=== PATIENT | male | born 1955 | race Caucasian/White ===

== ENCOUNTER 2020-10-21 06:10 | Emergency (ER) | payer OTHER ==
[~2020-10-21] VITALS: Ht 167.6 cm; Wt 69.0 kg
[2020-10-21 06:12] VITALS: BP 123/87
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
--- NOTE | 2020-10-21 07:11 | NUR ---
REPORT FROM CHANI, ASSUME CARE OF PT AT THIS TIME. XR RESULTS BACK, PT FOR RECHECK.
[2020-10-21] MEDS ORDERED: IBUPROFEN 200 MG TABLET ONE (07:37)
[2020-10-21] MEDS ORDERED: IBUPROFEN 200 MG TABLET PO ONE (08:00)
== END 2020-10-21 08:03 | disposition home or self-care (01) ==
LOC: ED 07:49
DX: S20.212A Contusion of left front wall of thorax, initial encounter (principal); Y04.8XXA Assault by other bodily force, initial encounter; Y93.89 Activity, other specified; Y92.410 Unspecified street and highway as the place of occurrence of the external cause; Y99.8 Other external cause status
CPT/HCPCS: 99283

== ENCOUNTER 2021-01-23 18:31 | Emergency (ER) | payer MEDICAID, OTHER ==
[~2021-01-23] VITALS: Ht 167.6 cm; Wt 64.4 kg
[2021-01-23] MEDS ORDERED: DEXAMETHASONE 4 MG/ML, 1ML PO ONE (19:30)
[2021-01-23] MEDS ORDERED: DEXAMETHASONE 4 MG/ML, 1ML ONE (22:33)
[2021-01-23 22:48] VITALS: BP 119/87
--- NOTE | 2021-01-23 22:48 | NUR ---
PATIENT GIVEN MEDICATION PER MAR. TOLERATED WELL.
[2021-01-23] MEDS ORDERED: ACETAMINOPHEN 500 MG TABLET ONE (23:19)
[2021-01-23] MEDS ORDERED: ACETAMINOPHEN 500 MG TABLET PO ONE (23:30)
== END 2021-01-23 23:23 | disposition home or self-care (01) ==
LOC: ED 23:05
DX: U07.1 COVID-19 (principal); J01.00 Acute maxillary sinusitis, unspecified; R09.81 Nasal congestion; F17.210 Nicotine dependence, cigarettes, uncomplicated
CPT/HCPCS: 71045; 99284; J1100; U0003; U0005

== ENCOUNTER 2021-02-09 17:25 | Inpatient (IN) | payer MEDICAID ==
[~2021-02-09] VITALS: Ht 170.2 cm; Wt 78.0 kg
[2021-02-09] MEDS ORDERED: KETOROLAC 30 MG/1 ML IVPush ONE (18:00)
[2021-02-09] MEDS ORDERED: PLEASE ENTER HEIGHT AND WEIGHT MC SCH (18:00)
[2021-02-09] MEDS ORDERED: SODIUM CHLORIDE FLUSH 10ML SYR IVF ONE (18:00)
[2021-02-09] MEDS ORDERED: SODIUM CHLORIDE 0.9% 1,000ML IVBOLUS ONE (18:00)
[2021-02-09] MEDS ORDERED: KETOROLAC 30 MG/1 ML ONE (18:07)
[2021-02-09 18:13] LABS: BASOPHILS % (AUTO) 1 % (0-1); EOSINOPHILS % (AUTO) 2 % (1-7); LYMPHOCYTES % (AUTO) 16 % (22-44); MEAN CORPUSCULAR HEMOGLOBIN 32.4 pg (27.5-34.5); MEAN CORPUSCULAR HGB CONC 33.8 g/dL (33.2-36.2); MEAN PLATELET VOLUME 7.1 fL (7.4-10.4); MONOCYTES % (AUTO) 7 % (2-9); NEUTROPHILS % (AUTO) 74 % (42-75); PLATELET COUNT 487 x10^3/uL (130-400); RED BLOOD COUNT 4.05 x10^6/uL (4.38-5.82); RED CELL DISTRIBUTION WIDTH 13.2 % (9.4-14.8)
[2021-02-09 18:25] LABS: ALANINE AMINOTRANSFERASE 27 U/L (12-78); ALBUMIN 2.6 g/dL (3.4-5.0); ANION GAP 8 mmol/L (5-15); CALCIUM 8.6 mg/dL (8.5-10.1); CHLORIDE 106 mmol/L (98-107); CREATININE 0.74 mg/dL (0.7-1.3)
[2021-02-09 18:28] LABS: ALKALINE PHOSPHATASE 85 U/L (45-117); BILIRUBIN,TOTAL 0.2 mg/dL (0.2-1.0); TOTAL PROTEIN 7.1 g/dL (6.4-8.2)
--- NOTE | 2021-02-09 18:41 | NUR ---
discussing poc with provider. to place pt on simple mask at 10 lpm to help with pneumothorax on left
[2021-02-09] MEDS ORDERED: ONDANSETRON 2MG/ML, 2ML IVPush PRN (23:30)
[2021-02-09] MEDS ORDERED: ENALAPRILAT 1.25 MG/ML, 2ML IVPush PRN (23:30)
[2021-02-09] MEDS ORDERED: MELATONIN 5 MG TABLET PO PRN (23:30)
[2021-02-09] MEDS ORDERED: BENZONATATE 100 MG CAPSULE PO/NG PRN (23:30)
[2021-02-09] MEDS ORDERED: ACETAMINOPHEN 325 MG TABLET PO PRN (23:30)
[2021-02-09] MEDS ORDERED: KETOROLAC 30 MG/1 ML IV PRN (23:30)
[2021-02-09] MEDS ORDERED: CIPR500T87 PO (23:55)
[2021-02-09] MEDS ORDERED: CLIN300C9 PO (23:55)
[2021-02-10 00:14] LABS: TROPONIN I < 0.015 ng/mL (0.000-0.045)
[2021-02-10 02:34] VITALS: BP 111/76
[2021-02-10 09:18] VITALS: BP 112/78
[2021-02-10] MEDS ORDERED: DEXAMETHASONE 4 MG/ML, 1ML IVPush ONE (11:30)
[2021-02-10] MEDS ORDERED: PHARMACY MAY ADJ FOR RENAL FX MC PRN (11:30)
[2021-02-10] MEDS ORDERED: DEXAMETHASONE 4 MG/ML, 1ML ONE (13:31)
[2021-02-10] MEDS ORDERED: ZINC SULFATE 220 MG CAPSULE ONE (13:31)
[2021-02-10] MEDS ORDERED: GUAIFENESIN/DM 200-20MG, 10ML UDC ONE ×3 (13:31→18:06)
[2021-02-10] MEDS ORDERED: ASCORBIC ACID 500 MG TABLET ONE ×2 (13:31→19:18)
[2021-02-10] MEDS: ASCORBIC ACID 500 MG TABLET PO SCH ×2 (13:39→19:44)
[2021-02-10] MEDS: GUAIFENESIN/DM 200-20MG, 10ML UDC PO SCH ×2 (13:39→18:26)
[2021-02-10] MEDS: ZINC SULFATE 220 MG CAPSULE PO SCH (13:40)
[2021-02-10 13:41] VITALS: BP 110/79
[2021-02-10] MEDS ORDERED: MELATONIN 5 MG TABLET ONE (19:19)
[2021-02-11 02:26] VITALS: BP 112/73
[2021-02-11] MEDS: GUAIFENESIN/DM 200-20MG, 10ML UDC PO SCH ×2 (03:24→10:23)
[2021-02-11] MEDS ORDERED: PANTOPRAZOLE 40MG TABLET PO SCH (07:30)
[2021-02-11] MEDS ORDERED: DEXAMETHASONE 4 MG/ML, 1ML IVPush SCH (07:30)
[2021-02-11] MEDS ORDERED: ASCORBIC ACID 500 MG TABLET ONE (08:20)
[2021-02-11] MEDS ORDERED: DEXAMETHASONE 4 MG/ML, 1ML ONE (08:20)
[2021-02-11] MEDS ORDERED: CHOLECALCIFEROL 5,000u TAB ONE (08:20)
[2021-02-11] MEDS ORDERED: PANTOPRAZOLE 40MG TABLET ONE (08:20)
[2021-02-11] MEDS ORDERED: ZINC SULFATE 220 MG CAPSULE ONE (08:21)
[2021-02-11 08:33] LABS: BASOPHILS % (AUTO) 1 % (0-1); EOSINOPHILS % (AUTO) 0 % (1-7); LYMPHOCYTES % (AUTO) 6 % (22-44); MEAN CORPUSCULAR HEMOGLOBIN 32.5 pg (27.5-34.5); MEAN CORPUSCULAR HGB CONC 34.2 g/dL (33.2-36.2); MEAN PLATELET VOLUME 7.1 fL (7.4-10.4); MONOCYTES % (AUTO) 4 % (2-9); NEUTROPHILS % (AUTO) 90 % (42-75); PLATELET COUNT 532 x10^3/uL (130-400); RED BLOOD COUNT 4.03 x10^6/uL (4.38-5.82); RED CELL DISTRIBUTION WIDTH 13.5 % (9.4-14.8)
[2021-02-11] MEDS: ASCORBIC ACID 500 MG TABLET PO SCH (08:36)
[2021-02-11 08:37] LABS: ANION GAP 6 mmol/L (5-15); CALCIUM 8.4 mg/dL (8.5-10.1); CHLORIDE 106 mmol/L (98-107); CREATININE 0.64 mg/dL (0.7-1.3)
[2021-02-11] MEDS: ZINC SULFATE 220 MG CAPSULE PO SCH (08:37)
[2021-02-11] MEDS ORDERED: CHOLECALCIFEROL 1,000 UNIT TABLET PO SCH (09:00)
[2021-02-11] MEDS ORDERED: AMOXICILLIN/CLAV 875-125MG TABLET PO SCH (09:30)
--- NOTE | 2021-02-11 09:30 | NUR ---
Meal tray given at 0830, when asked how pt was doing pt stated, "Well obviously I can't tell you." Pt asked if there was anything nursing staff can do to help him feel better, more comfortable, or any needs addressed, pt stated "Well I can't tell you because I'm angry." Pt refused to explain what he was angry about but did request his dressing to right index finger changed after breakfast. Dressing c/d/i. 0900: Provider at bs, R index finger dressing changed by provider. Pt requests shower. 0930: Pt given hygiene supplies, including bed bath and oral hygiene supplies, fresh gown. Pt declined all hygiene supplied, yelled at this RN, "I'm expecting a shower, I want a shower! The doctor said I could have one, now!" Explained to pt we are unable to provide shower in ED, and explained use of bed bath supplies, no rinse soap. Pt yelled, "No, take that out of here. Take it all out of here. I don't want it!" Pt is on isolation precautions. Pt verbalized understanding of isolation, but stated "I want to go upstairs now! Once I get off of this oxygen I'm going to be fine, I'll just walk out of here. I don't want isolation, I want a shower." Pt currently on O2 at 5Lpm via NC, SpO2 93-95%. Call light within reach. TM.
[2021-02-11] MEDS ORDERED: NICOTINE 14MG/24 HR PATCH.TD24 TD SCH (10:00)
[2021-02-11] MEDS ORDERED: NICOTINE 14MG/24 HR PATCH.TD24 ONE (10:11)
[2021-02-11] MEDS ORDERED: AMOXICILLIN/CLAV 875-125MG TABLET ONE (10:11)
[2021-02-11] MEDS ORDERED: GUAIFENESIN/DM 200-20MG, 10ML UDC ONE (10:11)
[2021-02-11] MEDS ORDERED: ACETAMINOPHEN 325 MG TABLET ONE (10:18)
--- NOTE | 2021-02-11 10:43 | NUR ---
PT'S RA SAT DROPPED TO 87%. PLACED BACK ON NC 4L SATS AT 95%.
--- NOTE | 2021-02-11 13:30 | NUR ---
PROVIDED LUNCH TRAY, VITALS REMAIN STABLE, STILL REQUIRING O2 VIA NC. DRESSING CHANGE TO RIGHT INDEX FINGER.
--- NOTE | 2021-02-11 18:25 | NUR ---
PROVIDED DINNER TRAY TO PT, PT REQUETING TO HAVE OXYGEN TURNED OFF, THIS RN ADVISED THAT SPO2 IS DOWN TO 85%, PT WISHES TO HAVE OXYGEN OFF AT THIS TIME, AND BECAME ANGRY WHEN THIS RN TRIED TO EDUCATE PT, PT PUSHED ZAMAN STAND OFF TO SIDE AND YELLED AT THIS RN TO LEAVE HIS ROOM.
--- NOTE | 2021-02-11 18:46 | NUR ---
REPORT TO VISHNU RUTHERFORD.
[2021-02-11 19:00] VITALS: BP 108/65
--- NOTE | 2021-02-11 19:07 | NUR ---
PT WISHES TO LEAVE AMA, REQUESTING PRESCRIPTION MEDICATIONS, CALL PLACED TO DR. GONZALEZ, LEFT VM MESSAGE FOR MD TO RETURN CALL.
--- NOTE | 2021-02-11 19:12 | NUR ---
ADVISED PT TO WAIT TO DISCUSS LEAVING AMA WITH MD, PT AGREES TO WAIT IN ROOM FOR RECEIVING RN AND MD. PT SITTING UP ON CHAIR IN ROOM AT THIS TIME.
--- NOTE | 2021-02-11 19:17 | NUR ---
PATIENT WALKED OUT OF UNIT. CALLED MD GONZALEZ. PATIENT WOULD NOT WAIT FOR FURTHER EVALUATION FROM MD [employer] ADMINISTRATOR. PATIENT STATED THAT HE WAS NOT GOING TO WAIT AND IF HE FELT THE NEED TO COME BACK HE WOULD. PATIENT AMBULATORY WITHOUT ANY COMPLICATIONS, WITH BELONGINGS TO LOBBY. PATIENT WAS CONFRONTATIONAL, AND AGGRESSIVE WITH LANGUAGE AT TIME OF ELOPEMENT. REFUSED TO SIGN PAPERWORK.
== END 2021-02-11 19:18 | disposition left against medical advice (07) | DRG 199 ==
LOC: ED 20:51 → OBSVTOIN 21:07 → INTOOBSV 21:07 → EDIP 21:07
PROVIDERS: ADMIT Family Medicine; ATTEND Internal Medicine
DX: J93.9 Pneumothorax, unspecified (principal); J96.01 Acute respiratory failure with hypoxia; Z20.822 Contact with and (suspected) exposure to COVID-19; D64.9 Anemia, unspecified; F15.10 Other stimulant abuse, uncomplicated; Z53.29 Procedure and treatment not carried out because of patient's decision for other reasons; F17.210 Nicotine dependence, cigarettes, uncomplicated; D47.3 Essential (hemorrhagic) thrombocythemia; L08.9 Local infection of the skin and subcutaneous tissue, unspecified; Z71.6 Tobacco abuse counseling; Z86.16 Personal history of COVID-19; Z59.0 Homelessness; Z87.01 Personal history of pneumonia (recurrent)
CPT/HCPCS: 36415; 71045; 80048; 80053; 83605; 83735; 84100; 84145; 84484; 85025; 87040; 93005; 96361; 96374; 96375; 99285; J1100; J1885; U0005; J7030; U0003

== ENCOUNTER 2021-02-13 09:06 | Outpatient (CLI) | payer MEDICAID ==
[~2021-02-13 09:06] MED LIST: CIPR500T87 PO; CLIN300C9 PO
== END 2021-02-13 23:59 | disposition home or self-care (01) ==
LOC: WOUND 09:06
PROVIDERS: ATTEND Internal Medicine
DX: L03.011 Cellulitis of right finger (principal); F17.210 Nicotine dependence, cigarettes, uncomplicated; F15.10 Other stimulant abuse, uncomplicated; I10 Essential (primary) hypertension; Z86.16 Personal history of COVID-19
CPT/HCPCS: 11042; 99215